=== PATIENT | female | born 1945 | race Caucasian/White ===

== ENCOUNTER 2017-03-13 09:15 | Inpatient (IN) | payer OTHER ==
[2017-02-26 15:51] LABS: % IMMATURE GRANULYOCYTES 0.2 % (0.0-1.1); ABSOLUTE IMMATURE GRANULOCYTES 0.01 10^3/uL (0.00-0.10); ADD DIFF? NO; ADD MORPH? NO; ADD SCAN? NO; ATYPICAL LYMPHOCYTE FLAG 50 (0-99); FRAGMENT RBC FLAG 0 (0-99); HEMATOCRIT 41.3 % (38.0-47.0); HEMOGLOBIN 14.1 g/dL (12.6-16.3); LEFT SHIFT FLG 0 (0-99); LIPEMIA HEMOLYSIS FLAG 90 (0-99); MEAN CELL HEMOGLOBIN 34.4 pg (27.9-34.1); MEAN CELL HEMOGLOBIN CONCENTR. 34.1 g/dL (32.4-36.7); MEAN CELL VOLUME 100.7 fL (81.5-99.8); MEAN PLATELET VOLUME 10.7 fL (8.7-11.7); PLATELET CLUMPS FLAG 0 (0-99); PLATELET COUNT 161 10^3/uL (150-400); RED CELL DISTRIBUTION WIDTH 12.3 % (11.5-15.2)
[2017-02-26 16:11] LABS: ALANINE AMINOTRANSFERASE 34 IU/L (9-52); ALKALINE PHOSPHATASE 68 IU/L (38-126); ANION GAP 15 mEq/L (8-16); ASPARTATE AMINOTRANSFERASE 32 IU/L (14-46); BILIRUBIN,TOTAL 1.1 mg/dL (0.1-1.4); CALCIUM 9.8 mg/dL (8.5-10.4); CARBON DIOXIDE 28 mEq/l (22-31); CHLORIDE 105 mEq/L (97-110); CREATININE 0.7 mg/dL (0.6-1.0); GLOMERULAR FILTRATION RATE > 60; GLUCOSE 78 mg/dL (70-100); POTASSIUM 4.7 mEq/L (3.5-5.2); SODIUM 148 mEq/L (134-144); TOTAL PROTEIN 6.5 g/dL (6.3-8.2)
[2017-04-17] MEDS ORDERED: CHLORHEXIDINE GLUC HIBICLENS 118 ML BTL TP ONE (11:42)
[2017-04-17] MEDS ORDERED: BUPIVACAINE 0.25% 30 ML SDV ONE ×4 (11:42→14:19)
[2017-04-17] MEDS ORDERED: BACITRACIN 50,000 UNITS/10 ML SYR IRR ONE ×2 (11:43→14:17)
[2017-04-17] MEDS ORDERED: THROMBIN (BOVINE) 5,000 UNIT VIAL TP ONE ×2 (11:43→14:19)
[2017-04-17] MEDS ORDERED: BACITRACIN ZINC 14.2 GM OINTTUBE TP ONE (11:47)
[2017-04-17] MEDS ORDERED: POVIDONE-IODINE 30 GM OINTTUBE TP ONE (11:47)
[2017-04-17] MEDS ORDERED: ceFAZolin 2 GM/SWFI 2 GM/20 ML SYR IVP ONE (11:57)
[2017-04-17] MEDS ORDERED: LR 1,000 ML IV ONE (11:58)
--- NOTE | 2017-04-17 13:50 | PDANEPAE ---
ANE History of Present Illness C5-7 fusion ANE Past Medical History - Cardiovascular History Hx Hypertension: Yes Hx Arrhythmias: No Hx Chest Pain: No Hx Coronary Artery / Peripheral Vascular Disease: Yes Hx CHF / Valvular Disease: No Hx Palpitations: No Cardiovascular History Comment: cad- stent x1. 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 severe back pain - Endocrine History Hx Diabetes: No Endocrine History Comment: hypothyroidism - Renal History Hx Renal Disorders: No - Liver History Hx Hepatic Disorders: No - Neurological & Psychiatric Hx Hx Neurological and Psychiatric Disorders: No - Cancer History Hx Cancer: Yes Cancer History Comment: breast cancer with chemo and radiation. currently on oral chemo daily - Congenital Disorder History Hx Congenital Disorders: No - GI History Hx Gastrointestinal Disorders: Yes Gastrointestinal History Comment: reflux - Other Health History Other Health History: wears reading glasses - Chronic Pain History Chronic Pain: Yes (back) - Surgical History Prior Surgeries: Right CHELO. bilateral cataracts. Right breast lumpectomy. cardiac stent x1 2012. tonsillectomy. hand surgeries ANE Review of Systems Review of Systems: - Exercise capacity METS (RN): 4 METS ANE Patient History - Allergies Allergies/Adverse Reactions: amlodipine [From Norvasc] Allergy (Verified 04/15/17 16:49) SWELLING NSAIDS (Non-Steroidal Anti-Inflamma Allergy (Verified 04/15/17 16:49) SWELLING/KIDNEY PROBLEMS - Home Medications Home Medications: Aspirin [Aspirin 81mg (*)] 81 mg PO DAILY 02/19/17 [Last Taken Unknown] Atenolol [Tenormin 50 mg (*)] 50 mg PO DAILY 02/19/17 [Last Taken Unknown] Atorvastatin Calcium [Lipitor 40 mg (*)] 40 mg PO HS 02/19/17 [Last Taken Unknown] Azelastine [Astelin Nasal Kelly (RX)] 1 sprays EACHNARE BID PRN 02/19/17 [Last Taken 04/16/17] Cetirizine [ZyrTEC 10 mg (*)] 10 mg PO DAILY 02/19/17 [Last Taken 04/16/17] Cholecalciferol Vit D3 [Vitamin D3 (*)] 5,000 units PO DAILY 02/19/17 [Last Taken Unknown] Cyanocobalamin [Vitamin B12 (*)] 1,000 mcg PO DAILY 02/19/17 [Last Taken ] Denosumab [Prolia] 60 mg SQ Q183D 02/19/17 [Last Taken 04/16/17] Furosemide [Lasix 40 MG (*)] 40 mg PO DAILY PRN 02/19/17 [Last Taken 04/15/17] Gabapentin [Neurontin 300 MG (*)] 300 mg PO TID 02/19/17 [Last Taken 04/17/17] Herbals/Supplements -Info Only 1 ea PO DAILY 02/19/17 [Last Taken 04/16/17] Letrozole [Femara 2.5 mg (*)] 2.5 mg PO DAILY 02/19/17 [Last Taken 04/17/17] Levothyroxine [Synthroid 75 mcg (*)] 75 mcg PO DAILY06 02/19/17 [Last Taken ] [place]-3 Fatty Acids [Fish Oil 1000 mg (*)] 1,000 mg PO HS 02/19/17 [Last Taken 04/16/17] [place]-3 Fatty Acids [Fish Oil 1000 mg (*)] 2,000 mg PO DAILY 02/19/17 [Last Taken 04/16/17] Omeprazole [Prilosec 20 mg] 20 mg PO BID 02/19/17 [Last Taken 04/16/17] Potassium Cl [Klor-Con 20 meq (*)] 20 mg PO DAILY PRN 02/19/17 [Last Taken 04/15] oxyCODONE/APAP 5/325 [Percocet 5/325 (*)] 1 tab PO Q6HRS PRN 02/19/17 [Last Taken 04/17/17] - NPO status NPO Since - Liquids (Date): 04/16/17 NPO Since - Liquids (Time): 22:00 NPO Since - Solids (Date): 04/16/17 NPO Since - Solids (Time): 22:00 - Smoking Hx Smoking Status: Current some day smoker - Family Anes Hx Family Hx Anesthesia Complications: none ANE Labs/Vital Signs - Labs Result Diagrams: 02/26/17 15:36 02/26/17 15:36 - Vital Signs Blood Pressure: 119/54 Heart Rate: 68 Respiratory Rate: 17 O2 Sat (%): 91 Height: 153.67 cm Weight: 49.895 kg ANE Physical Exam - Airway Neck exam: decreased ROM Mallampati Score: Class 2 Mouth exam: poor dentition - Pulmonary Pulmonary: clear to auscultation - Cardiovascular Cardiovascular: regular rate and rhythym - ASA Status ASA Status: III ANE Anesthesia Plan Anesthesia Plan: general endotracheal anesthesia Total IV Anesthesia: Yes
--- NOTE | 2017-04-17 13:56 | PDGENHP ---
History & Physical Chief Complaint: hand paresthesias History of Present Illness: 72 yo F with progressive hand weakness and paresthesias related to her cervical stenosis. Pertinent Past, Social, Family History: see H&P Relevant Physical Exam: 09/06. + light touch Cardiorespiratory Assessment: RRR. CTA bilat
[2017-04-17] MEDS ORDERED: PROPOFOL/EMULSION 500 MG/50 ML BOTTLE IV ONE ×5 (14:09→17:31)
[2017-04-17] MEDS ORDERED: REMIFENTANIL HCL 1 MG VIAL ONE ×3 (14:10)
[2017-04-17] MEDS ORDERED: SUCCINYLCHOLINE CHLORIDE 200 MG/10 ML SYR IVP ONE (14:11)
[2017-04-17] MEDS ORDERED: LIDOCAINE 2% 5 ML SDV ONE (14:13)
[2017-04-17] MEDS ORDERED: AZELASTINE NASAL MDI EACHNARE PRN (14:26)
[2017-04-17] MEDS ORDERED: FUROSEMIDE 40 MG TAB PO PRN (14:26)
[2017-04-17] MEDS ORDERED: HYDROmorphONE/DILAUDID 2 MG/ML INJ ONE (15:38)
[2017-04-17] MEDS ORDERED: ONDANSETRON 4 MG/2 ML VIAL ONE (15:40)
[2017-04-17] MEDS ORDERED: METOCLOPRAMIDE 10 MG/2 ML VIAL ONE (15:40)
[2017-04-17] MEDS ORDERED: DEXAMETHASONE 4 MG/ML VIAL ONE ×2 (15:40)
[2017-04-17] MEDS ORDERED: SURGIFLO MATRIX KIT WITH THROMBIN 8ml TP ONE (16:30)
[2017-04-17] MEDS ORDERED: HYDROCODONE/APAP 5/325 TAB PO PRN (18:54)
[2017-04-17] MEDS ORDERED: MAGNESIUM HYDROXIDE 30 ML UDCUP PO PRN (18:54)
[2017-04-17] MEDS ORDERED: LACTULOSE 20 GM/30 ML UDCUP PO PRN (18:54)
[2017-04-17] MEDS ORDERED: diphenhydrAMINE 25 MG CAP PO PRN (18:54)
[2017-04-17] MEDS ORDERED: ONDANSETRON DISINTEGRATING 4 MG TAB PO PRN (18:54)
[2017-04-17] MEDS ORDERED: BISACODYL 10 MG SUPP PR PRN (18:54)
[2017-04-17] MEDS ORDERED: morphINE PCA 30 MG/30 ML PCA IV PRN (18:54)
[2017-04-17] MEDS ORDERED: ONDANSETRON 4 MG/2 ML VIAL IVP PRN ×2 (18:54→19:28)
[2017-04-17] MEDS ORDERED: NALOXONE HCL 0.4 MG/ML INJ IVP PRN ×2 (18:54→19:28)
[2017-04-17] MEDS ORDERED: NS W/ 20 KCl/L 1,000 ML IV SCH (19:00)
--- NOTE | 2017-04-17 19:00 | SOAPPROG ---
SOAP Progress Note Assessment/Plan: Assessment: 72 yo F sp C5-7 ACDF and C4-7 posterior decompression and fusion Plan: neuro: stable hard collar lovenox starts POD #3 ZACK x 2 please call with neuro changes 04/17/17 18:57 Subjective: + neck pain, no arm pain Objective: Vital Signs Temp Pulse Resp BP Pulse Ox 37.1 C 68 17 119/54 L 91 L 04/17/17 12:00 04/17/17 13:50 04/17/17 13:50 04/17/17 13:50 04/17/17 13:50 Laboratory Results 02/26/17 15:36 02/26/17 15:36 somnolent PERRL, EOMI TOBY x 4 + light touch C/D/I x 2 ICD10 Worksheet Patient Problems: Problems Problem Status Onset Fusion of spine of cervical region Acute - ICD10 Problem Qualifiers (1) Fusion of spine of cervical region
--- NOTE | 2017-04-17 19:05 | POSTANESTH ---
Post Anesthetic Evaluation Cardiovascular Status: Normal, Stable Respiratory Status: Normal, Stable Level of Consciousness/Mental Status: Can Participate in Eval, Mildly Sleepy, Arousable Pain Control: Adequate, Prn Tx Ordered Nausea/Vomiting Control: Adequate, Prn Tx Ordered Complications Possibly Related to Anesthesia: None Noted
[2017-04-17] MEDS ORDERED: fentaNYL 100 MCG/2 ML INJ ONE ×2 (19:25→19:40)
[2017-04-17] MEDS: fentaNYL 100 MCG/2 ML INJ IVP PRN ×3 (19:27→19:58)
[2017-04-17] MEDS ORDERED: ALBUTEROL 3 ML DEYVIAL IH PRN (19:28)
[2017-04-17] MEDS ORDERED: HYDROmorphONE/DILAUDID 1 MG/ML INJ ONE (19:40)
[2017-04-17] MEDS: HYDROmorphONE/DILAUDID 1 MG/ML INJ IVP PRN ×2 (19:42→19:58)
[2017-04-17] MEDS: GABAPENTIN 300 MG CAP PO SCH ×2 (21:37→21:45)
[2017-04-17] MEDS: FAMOTIDINE 20 MG TAB PO SCH (21:37)
[2017-04-17] MEDS: PANTOPRAZOLE SODIUM 40 MG TAB PO SCH (21:38)
[2017-04-17] MEDS: morphINE SR 15 MG TAB PO SCH (21:38)
[2017-04-17] MEDS: ATORVASTATIN CALCIUM 40 MG TAB PO SCH (21:39)
[2017-04-17] MEDS: SENNOSIDES/DOCUSATE SODIUM TAB PO SCH (21:40)
[2017-04-17] MEDS: POLYETHYLENE GLYCOL 3350 17 GM PKT PO SCH (21:43)
[2017-04-17] MEDS: OXYCODONE/APAP 5/325 TAB PO PRN (23:21)
[2017-04-17] MEDS: oxyCODONE IR 5 MG TAB PO PRN (23:22)
[2017-04-17] MEDS: ceFAZolin 2 GM/DEXTROSE 100 ML IV SCH (23:22)
[2017-04-18] MEDS: GABAPENTIN 300 MG CAP PO SCH ×4 (00:03→21:11)
--- NOTE | 2017-04-18 03:39 | GOP ---
[f rep st] OPERATIVE REPORT DATE OF OPERATION: 04/17/2017 SURGEON: Link Daniel MD SOLAR ELECTRIC INSTALLER: George Thornton PA-C ANESTHESIA: General endotracheal. 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 Exploration of spinal fusion at C4-5 with C5-6 and C6-7 anterior cervical diskectomy and arthrode sis with two 11 mm structural PEEK interbody spacers and local autograft. 2. Partial C6 vertebral corpectomy. 3. Placement of a C5-C7 anterior cervical plate with self-drilling screws. 4. Use of intraoperative microscopy and fluoroscopy. FINDINGS: ESTIMATED BLOOD LOSS: 50 cc INDICATIONS: The patient is a 72-year-old woman with multilevel severe degenerative joint disease an d disk herniations with severe spinal stenosis and progressive cervical spondylitic myelopathy. She also has Klippel-Feil syndrome at the C4-5 level. She presents now for multilevel anterior and poste rior surgical decompression and stabilization. DESCRIPTION OF PROCEDURE: After informed consent was obtained, the patient was taken to the operatin g room and placed in the supine position with the head in the Halter retractor system. After baselin e neuro monitoring, potentials were obtained in the neutral position. They were reobtained after ariela cement of the Halter retractor system. The anterior cervical region was then prepped and draped in a sterile fashion. After fluoroscopic localization of the correct level, the subcutaneous and intramu scular tissues were infiltrated with local anesthesia. A horizontal incision was then created at the level of the C6 vertebral body. This was carried through the platysmal layer using the monopolar el ectrocautery and carried in the avascular plane between the sternocleidomastoid and carotid sheath la terally and the strap muscles, trachea, and esophagus medially down to the prevertebral fascia, which was carefully incised with Metzenbaum scissors. The anatomy was extremely distorted. The C4-5 leve l was explored and inspected and noted to be a solid natural Klippel-Feil fusion. The C5-6 and C6-7 levels were carefully dissected out. This was much more time consuming than normal due to the extrem conard large uncovertebral joints and distorted anatomy. Eventually, I did get this all dissected out a nd the [place] distraction pins were inserted. Serial distraction was created across the interspace, first at C5-6 and then at C6-7. During which time complete diskectomies were performed with preparat ion of the endplates and removal of posterior longitudinal ligament. Bilateral foraminotomies were p erformed. Again, the degenerative arthritis was so severe along with the posteriorly protruding oste ophytes and an extensive amount of bone needed to be drilled away. Because the disk above and below the C6 vertebral body was being decompressed, there was an extensive amount of bone removal at C6, gr eater than 50%, for a partial C6 vertebral corpectomy. Following adequate decompression, the wound w as copiously irrigated with antibiotic irrigation and meticulous hemostasis was achieved as best I co uld. The interspaces were then packed with 11 mm structural PEEK interbody spacers with local autogr aft in the center for the osteophytectomy and partial corpectomy defect. This was performed under fl uoroscopic image guidance. The distraction was then removed and an appropriately sized 47 mm L&K Lv tleLoc-P anterior cervical plate was then placed and secured from C5 through C7 with self-drilling sc rews. Following re-verification of good position of the plate, screws, and interbody spacers using b iplanar fluoroscopy, the locking mechanisms were engaged. A drain was placed and the subcutaneous sp xavier and intramuscular tissues were re-infiltrated with local anesthesia after gently placing the resi dual local autograft in the anterior hole of the plate. After placing the drain and local anesthesia , the wound was closed in a layered fashion using interrupted Vicryl sutures followed by Steri-Strips on the skin. COMPLICATIONS: None. DISPOSITION: The patient remained intubated and was repositioned prone for the posterior cervical po rtion of the operation. /[id number]/MODL
--- NOTE | 2017-04-18 03:44 | GOP ---
[f rep st] OPERATIVE REPORT DATE OF OPERATION: 04/17/2017 SURGEON: Link Daniel MD CORPORATE INVESTIGATOR: George Thornton PA-C ANESTHESIA: General endotracheal. 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 PROCEDURE PERFORMED: 1. C4-C7 posterior segmental (lateral mass screw) fixation and posterolateral fusion with local auto graft. 2. C4-C7 laminectomies for decompression of the spinal cord. 3. Use of intraoperative microscopy and fluoroscopy. FINDINGS: ESTIMATED BLOOD LOSS: 75 cc. INDICATIONS: The patient is a 72-year-old woman with multilevel severe degenerative joint disease an d disk herniations with severe spinal stenosis and progressive cervical spondylitic myelopathy. She also has Klippel-Feil syndrome at the C4-5 level. She presents now for multilevel anterior and poste rior surgical decompression and stabilization. DESCRIPTION OF PROCEDURE: After the anterior portion of the procedure was completed, the patient was repositioned prone with the head in a Graves head cager. The posterior cervical region was prepp ed and draped in the sterile fashion. After fluoroscopic localization of correct levels, the subcuta neous and intramuscular tissues were infiltrated with local anesthesia. A midline linear incision wa s then created from approximately C4 through C7. This was carried down to the fascial layer, which w as incised using monopolar electrocautery and carried in a subperiosteal plane along the spinous proc esses and lamina bilaterally. Intraoperative fluoroscopy was again utilized to verify the correct le vels. Following this, the dissection was carried out over the facet joints. The system w ith a massive fluted bur was utilized to carefully drill gutters between the lamina and the lateral m asses. The lamina were all removed and morselized for local autograft after carefully cleaning off a ll soft tissue. Meticulous hemostasis was achieved and, following this, lateral mass screw fixation was placed at C4, C5, C6, and C7 bilaterally. Each individual screw was tested neurophysiologically with monopolar electrostimulation and interpretation of the potentials by the surgeon. Good position of the screws was also verified using biplanar fluoroscopy. The rods were then placed and secured u nder maximal lordosis. The remaining facet joints and lateral masses were then extensively decortica fausto and the residual local autograft was placed out laterally for a posterolateral fusion from C4 thr ough C7. The subcutaneous and intramuscular tissues were then re-infiltrated with local anesthesia a nd the wound was closed in a layered fashion using interrupted Vicryl sutures followed by Steri-Strip s on the skin after placement of the drain. COMPLICATIONS: None. DISPOSITION: The patient is currently in the process of being repositioned for extubation. /[id number]/MODL
[2017-04-18 04:52] LABS: % IMMATURE GRANULYOCYTES 0.4 % (0.0-1.1); ABSOLUTE IMMATURE GRANULOCYTES 0.03 10^3/uL (0.00-0.10); ADD DIFF? NO; ADD MORPH? NO; ADD SCAN? NO; ATYPICAL LYMPHOCYTE FLAG 0 (0-99); FRAGMENT RBC FLAG 0 (0-99); HEMATOCRIT 33.5 % (38.0-47.0); HEMOGLOBIN 11.4 g/dL (12.6-16.3); LEFT SHIFT FLG 0 (0-99); LIPEMIA HEMOLYSIS FLAG 90 (0-99); MEAN CELL HEMOGLOBIN 32.9 pg (27.9-34.1); MEAN CELL VOLUME 96.5 fL (81.5-99.8); PLATELET CLUMPS FLAG 10 (0-99); PLATELET COUNT 139 10^3/uL (150-400); RED BLOOD CELL COUNT 3.47 10^6/uL (4.18-5.33); RED CELL DISTRIBUTION WIDTH 12.2 % (11.5-15.2)
[2017-04-18 05:00] LABS: ANION GAP 9 mEq/L (8-16); CARBON DIOXIDE 25 mEq/l (22-31); CHLORIDE 110 mEq/L (97-110); CREATININE 0.6 mg/dL (0.6-1.0); GLOMERULAR FILTRATION RATE > 60; GLUCOSE 150 mg/dL (70-100); POTASSIUM 4.5 mEq/L (3.5-5.2); SODIUM 144 mEq/L (134-144)
[2017-04-18] MEDS: ceFAZolin 2 GM/DEXTROSE 100 ML IV SCH (06:02)
[2017-04-18] MEDS: LEVOTHYROXINE 75 MCG TAB PO SCH (06:02)
[2017-04-18] MEDS: oxyCODONE IR 5 MG TAB PO PRN ×2 (06:02→19:37)
--- NOTE | 2017-04-18 07:54 | SOAPPROG ---
SOAP Progress Note Assessment/Plan: Assessment: 72 yo F pod #1 C5-7 ACDF and C4-7 posterior decompression and fusion Plan: neuro: stable and doing well overall :) hard collar at all times for 4 weeks x-rays today scd/fausto/ for dvt prophylaxis, lovenox starts POD #3 ZACK x 2 please call with neuro changes 04/17/17 18:57 04/18/17 07:53 Subjective: + neck pain, no arm pain, no weakness. Objective: Vital Signs Temp Pulse Resp BP Pulse Ox 36.6 C 71 16 162/77 H 95 04/18/17 07:25 04/18/17 07:25 04/18/17 07:25 04/18/17 07:25 04/18/17 07:25 Laboratory Results 04/18/17 04:11 04/18/17 04:11 04/17/17 04/18/17 04/19/17 05:59 05:59 05:59 Intake Total 2410 245 Output Total 920 Balance 1490 245 AAOX4, +FC PERRL, EOMI, no facial droop 5/5 + light touch C/D/I x 2 ICD10 Worksheet Patient Problems: Problems Problem Status Onset Fusion of spine of cervical region Acute - ICD10 Problem Qualifiers (1) Fusion of spine of cervical region
[2017-04-18] MEDS: morphINE SR 15 MG TAB PO SCH ×2 (08:05→22:44)
[2017-04-18] MEDS: PANTOPRAZOLE SODIUM 40 MG TAB PO SCH ×2 (08:05→19:37)
[2017-04-18] MEDS: FAMOTIDINE 20 MG TAB PO SCH ×2 (08:06→19:36)
[2017-04-18] MEDS: ATENOLOL 50 MG TAB PO SCH (08:06)
[2017-04-18] MEDS: CETIRIZINE 10 MG TAB PO SCH (08:06)
[2017-04-18] MEDS: CYANO/VITAMIN B12 1000 MCG TAB PO SCH (08:06)
[2017-04-18] MEDS: CHOLECALCIFEROL VIT D3 1,000 UNITS TAB PO SCH (08:06)
[2017-04-18] MEDS: SENNOSIDES/DOCUSATE SODIUM TAB PO SCH ×2 (08:07→22:12)
[2017-04-18] MEDS: POLYETHYLENE GLYCOL 3350 17 GM PKT PO SCH ×3 (08:08→22:11)
[2017-04-18] MEDS: LETROZOLE 2.5 MG TAB PO SCH (11:01)
--- NOTE | 2017-04-18 15:34 | ASMTCMCOM ---
CM Note CM Note Notes: Pt s/p C5-7 cervical fusion. PT/OT cleared. Anticipate pt will d/c home with no CM needs - will continue to follow for any change in needs. Date Signed: 04/18/2017 03:34 PM Electronically Signed By:BRET Reinoso
[2017-04-18] MEDS: ATORVASTATIN CALCIUM 40 MG TAB PO SCH (19:37)
[2017-04-18] MEDS: OXYCODONE/APAP 5/325 TAB PO PRN (19:37)
[2017-04-19] MEDS: oxyCODONE IR 5 MG TAB PO PRN ×4 (00:18→21:54)
[2017-04-19] MEDS: LEVOTHYROXINE 75 MCG TAB PO SCH (05:46)
[2017-04-19] MEDS: METHOCARBAMOL 750 MG TAB PO PRN ×2 (09:59→17:03)
[2017-04-19] MEDS: CETIRIZINE 10 MG TAB PO SCH (10:57)
[2017-04-19] MEDS: GABAPENTIN 300 MG CAP PO SCH ×3 (10:58→21:39)
[2017-04-19] MEDS: CYANO/VITAMIN B12 1000 MCG TAB PO SCH (10:58)
[2017-04-19] MEDS: CHOLECALCIFEROL VIT D3 1,000 UNITS TAB PO SCH (10:58)
[2017-04-19] MEDS: PANTOPRAZOLE SODIUM 40 MG TAB PO SCH ×2 (10:59→20:00)
[2017-04-19] MEDS: SENNOSIDES/DOCUSATE SODIUM TAB PO SCH ×2 (10:59→21:39)
[2017-04-19] MEDS: POLYETHYLENE GLYCOL 3350 17 GM PKT PO SCH ×3 (10:59→23:18)
[2017-04-19] MEDS: morphINE SR 15 MG TAB PO SCH (10:59)
[2017-04-19] MEDS: ATENOLOL 50 MG TAB PO SCH (10:59)
[2017-04-19] MEDS: FAMOTIDINE 20 MG TAB PO SCH ×2 (11:00→20:00)
[2017-04-19] MEDS: LETROZOLE 2.5 MG TAB PO SCH (11:00)
--- NOTE | 2017-04-19 11:24 | NEUSURGPN ---
Date of Surgery: 04/17/17 Post Op Day: 2 Assessment/Plan: Assessment: 72 yo F pod #2 C5-7 ACDF and C4-7 posterior decompression and fusion Plan: -Patient with acute right deltoid weakness, full strength in all other muscle groups. Likely a 5th nerve palsy given unilateral symptoms without other muscle group involvement. No need to image at this time. Discussed with Dr Telles and explained to the patient that this can resolve over a long period of time. -PT/OT/ST -hard collar at all times for 4 weeks -x-rays demonstrate stable hardware placement without evidence of complication -pain management-dc percocet, encouraged patient to try Robaxin for shoulder pain, will use Oxycodone and Tylenol for pain control -scd/fausto/ for dvt prophylaxis, lovenox starts POD #3 -Will dc anterior ZACK today, leave posterior ZACK for now -Discussed patient with Dr Telles -Please call neurosurgery with any questions/concerns Subjective: patient with some shoulder tenderness Objective: AxO x3 PERRLA EOMI No droop 5/5 BLE 5/5 BUE except right deltoid 2/5 Sensation intact to light touch BLE Dressings x2 CDI Anterior and posterior ZACK in place Neuro Check Frequency: per routine Urinary Catheter in Place: No Catheter Insertion Date: 04/17/17 - Physician Discussed Patient with : [facility] Neurosurgery Physical Exam - Vitals, I&O, Labs I and O 04/18/17 04/19/17 04/20/17 05:59 05:59 05:59 Intake Total 2410 1145 Output Total 920 105 Balance 1490 1040 Weight 49.895 kg Intake: Oral (ml) 10 900 IV Intake (ml) 2400 IV Infused (ml) 245 NS W/ 20 KCl/L 1,000 ml @ 245 75 mls/hr IV CONT CORINNE Rx #:[id number] Output: Urine (ml) 500 Catheter 500 Estimated Blood Loss (ml) 50 Emesis (ml) 0 ZACK Drain Output (ml) 370 105 Anterior Neck Cameron 130 30 [place] Posterior Neck Cameron 240 75 [place] Other: Number of Voids Toilet 2 1 Number of Stools Toilet 2 Vital Signs Temp Pulse Resp BP Pulse Ox 37.2 C 83 14 130/88 H 95 04/19/17 07:22 04/19/17 10:59 04/19/17 07:22 04/19/17 10:59 04/19/17 07:22 Laboratory Results 04/18/17 04:11 04/18/17 04:11 ICD10 Worksheet Patient Problems: Problems Problem Status Onset Fusion of spine of cervical region Acute
[2017-04-19 16:16] VITALS: RESP 16
[2017-04-19] MEDS: ACETAMINOPHEN 325 MG TAB PO PRN (17:03)
[2017-04-19] MEDS: ATORVASTATIN CALCIUM 40 MG TAB PO SCH (20:00)
[2017-04-20] MEDS: METHOCARBAMOL 750 MG TAB PO PRN ×3 (02:10→21:40)
[2017-04-20] MEDS: LEVOTHYROXINE 75 MCG TAB PO SCH (05:35)
[2017-04-20] MEDS: oxyCODONE IR 5 MG TAB PO PRN (05:53)
--- NOTE | 2017-04-20 07:28 | NEUSURGPN ---
Date of Surgery: 04/17/17 Post Op Day: 3 Assessment/Plan: Assessment: 72 yo F pod #3 C5-7 ACDF and C4-7 posterior decompression and fusion Plan: -Patient with acute right deltoid weakness, full strength in all other muscle groups. Likely a 5th nerve palsy given unilateral symptoms without other muscle group involvement. No need to image at this time. Discussed with Dr Telles and explained to the patient that this can resolve over a long period of time. - continue with PT/OT/ST -hard collar at all times for 4 weeks -x-rays demonstrate stable hardware placement without evidence of complication -pain management-will add low dose Valium for muscle spasms -scd/fausto/ for dvt prophylaxis, lovenox starts POD #3 -leave ZACK in for now -case management to eval for dispo options per therapies recommendations -Discussed patient with Dr Telles -Please call neurosurgery with any questions/concerns Subjective: continued shoulder/scapular pain Objective: AxO x3 PERRLA EOMI No droop 5/5 BLE 5/5 BUE except right deltoid 2/5 Sensation intact to light touch BLE Dressings x2 CDI Neuro Check Frequency: per routine Urinary Catheter in Place: No Catheter Insertion Date: 04/17/17 - Physician Discussed Patient with : [facility] Neurosurgery Physical Exam - Vitals, I&O, Labs I and O 04/19/17 04/20/17 04/21/17 05:59 05:59 05:59 Intake Total 1145 800 Output Total 105 45 Balance 1040 755 Intake: Oral (ml) 900 800 IV Infused (ml) 245 NS W/ 20 KCl/L 1,000 ml @ 245 75 mls/hr IV CONT CORINNE Rx #:[id number] Output: ZACK Drain Output (ml) 105 45 Anterior Neck [place] 30 35 [place] Posterior Neck [place] 75 10 [place] Other: Intake Quantity Yes Sufficient Number of Voids Toilet 2 2 Number of Stools Toilet 2 Vital Signs Temp Pulse Resp BP Pulse Ox 37.1 C 73 16 132/68 H 93 04/19/17 22:58 04/19/17 22:58 04/19/17 22:58 04/19/17 22:58 04/19/17 22:58 Laboratory Results 04/18/17 04:11 04/18/17 04:11 ICD10 Worksheet Patient Problems: Problems Problem Status Onset Fusion of spine of cervical region Acute
[2017-04-20] MEDS ORDERED: DIAZEPAM 2 MG TAB PO PRN (07:32)
[2017-04-20] MEDS: ATENOLOL 50 MG TAB PO SCH (10:00)
[2017-04-20] MEDS: CYANO/VITAMIN B12 1000 MCG TAB PO SCH (10:01)
[2017-04-20] MEDS: CETIRIZINE 10 MG TAB PO SCH (10:01)
[2017-04-20] MEDS: CHOLECALCIFEROL VIT D3 1,000 UNITS TAB PO SCH (10:01)
[2017-04-20] MEDS: PANTOPRAZOLE SODIUM 40 MG TAB PO SCH ×2 (10:02→21:15)
[2017-04-20] MEDS: ACETAMINOPHEN 325 MG TAB PO PRN (10:02)
[2017-04-20] MEDS: GABAPENTIN 300 MG CAP PO SCH ×3 (10:02→21:15)
[2017-04-20] MEDS: LETROZOLE 2.5 MG TAB PO SCH (10:02)
[2017-04-20] MEDS: ENOXAPARIN 40 MG/0.4 ML SYR SC SCH (10:13)
[2017-04-20] MEDS: SENNOSIDES/DOCUSATE SODIUM TAB PO SCH ×2 (10:16→21:16)
[2017-04-20] MEDS: POLYETHYLENE GLYCOL 3350 17 GM PKT PO SCH ×3 (10:16→21:14)
[2017-04-20] MEDS: FAMOTIDINE 20 MG TAB PO SCH ×2 (10:16→21:15)
--- NOTE | 2017-04-20 15:21 | ASMTCMCOM ---
CM Note CM Note Notes: CM spoke w/ [place] PT regarding d/c POC. CM met w/ pt for dispo planning. Pt is agreeable to having HC. Referral made to [facility]. CM confirmed address and phone number. CM to follow. Plan: HC; PT/OT Date Signed: 04/20/2017 03:21 PM Electronically Signed By:THU Ho
[2017-04-20] MEDS: ATORVASTATIN CALCIUM 40 MG TAB PO SCH (21:15)
[2017-04-21] MEDS: oxyCODONE IR 5 MG TAB PO PRN ×4 (04:10→21:54)
[2017-04-21] MEDS: LEVOTHYROXINE 75 MCG TAB PO SCH (06:01)
--- NOTE | 2017-04-21 08:11 | SOAPPROG ---
SOAP Progress Note Assessment/Plan: Assessment: 72 yo F pod #4 C5-7 ACDF and C4-7 posterior decompression and fusion Plan: neuro: stable and doing well overall hard collar at all times for 4 weeks worsening cough without fevers, ? bronchitis vs pneumonia, will check CXR and have Medicine consult continued weakness in right deltoid/triceps, will follow for now cervical x-rays look good. scd/fausto/lovenox for dvt prophylaxis JPs removed please call with neuro changes Patient seen by Dr Telles this am 04/17/17 18:57 04/18/17 07:53 04/21/17 08:09 04/21/17 08:11 Subjective: continued neck pain with weakness in right arm Objective: Vital Signs Temp Pulse Resp BP Pulse Ox 36.8 C 81 16 146/75 H 90 L 04/21/17 00:00 04/21/17 00:00 04/21/17 00:00 04/21/17 00:00 04/21/17 00:00 Laboratory Results 04/18/17 04:11 04/18/17 04:11 04/20/17 04/21/17 04/22/17 05:59 05:59 05:59 Intake Total 800 500 Output Total 45 20 Balance 755 480 AAOx4, +FC PERRL, EOMI, no facial droop 5/5 except right deltoid/triceps 4/5 + light touch C/D/I x 2 ICD10 Worksheet Patient Problems: Problems Problem Status Onset Fusion of spine of cervical region Acute - ICD10 Problem Qualifiers (1) Fusion of spine of cervical region
[2017-04-21] MEDS: METHOCARBAMOL 750 MG TAB PO PRN (08:17)
[2017-04-21] MEDS: GABAPENTIN 300 MG CAP PO SCH ×3 (08:19→21:43)
[2017-04-21] MEDS: CYANO/VITAMIN B12 1000 MCG TAB PO SCH (10:15)
[2017-04-21] MEDS: CHOLECALCIFEROL VIT D3 1,000 UNITS TAB PO SCH (10:15)
[2017-04-21] MEDS: PANTOPRAZOLE SODIUM 40 MG TAB PO SCH ×2 (10:15→21:44)
[2017-04-21] MEDS: ATENOLOL 50 MG TAB PO SCH (10:15)
[2017-04-21] MEDS: LETROZOLE 2.5 MG TAB PO SCH (10:15)
[2017-04-21] MEDS: SENNOSIDES/DOCUSATE SODIUM TAB PO SCH ×2 (10:16→21:43)
[2017-04-21] MEDS: FAMOTIDINE 20 MG TAB PO SCH ×2 (10:16→21:43)
[2017-04-21] MEDS: ENOXAPARIN 40 MG/0.4 ML SYR SC SCH (10:16)
[2017-04-21] MEDS: CETIRIZINE 10 MG TAB PO SCH (10:16)
[2017-04-21] MEDS: POLYETHYLENE GLYCOL 3350 17 GM PKT PO SCH ×2 (10:22→16:48)
[2017-04-21 11:17] LABS: % IMMATURE GRANULYOCYTES 0.3 % (0.0-1.1); ABSOLUTE IMMATURE GRANULOCYTES 0.02 10^3/uL (0.00-0.10); ADD DIFF? NO; ADD MORPH? NO; ADD SCAN? NO; ATYPICAL LYMPHOCYTE FLAG 0 (0-99); FRAGMENT RBC FLAG 0 (0-99); LEFT SHIFT FLG 0 (0-99); LIPEMIA HEMOLYSIS FLAG 90 (0-99); MEAN CELL HEMOGLOBIN 33.5 pg (27.9-34.1); MEAN CELL HEMOGLOBIN CONCENTR. 34.4 g/dL (32.4-36.7); MEAN CELL VOLUME 97.6 fL (81.5-99.8); MEAN PLATELET VOLUME 10.3 fL (8.7-11.7); PLATELET CLUMPS FLAG 0 (0-99); PLATELET COUNT 164 10^3/uL (150-400); RED BLOOD CELL COUNT 3.28 10^6/uL (4.18-5.33); RED CELL DISTRIBUTION WIDTH 11.8 % (11.5-15.2)
[2017-04-21 12:07] LABS: ANION GAP 11 mEq/L (8-16); CALCIUM 8.6 mg/dL (8.5-10.4); CARBON DIOXIDE 25 mEq/l (22-31); CHLORIDE 107 mEq/L (97-110); CREATININE 0.6 mg/dL (0.6-1.0); GLOMERULAR FILTRATION RATE > 60; GLUCOSE 166 mg/dL (70-100); SODIUM 143 mEq/L (134-144)
--- NOTE | 2017-04-21 18:42 | PDHOSCONS ---
Hospitalist Consult Hospitalist Consult: CC: Asked by Neurosurgery team to assess this patient because of cough in the postoperative setting after cervical spine surgery HISTORY: This patient came to the hospital for elective cervical spine surgery after previous spine surgery. She underwent laminectomy fusion spacer placement diskectomy and placement of a new plate. Overall her surgery was uncomplicated her clinical course afterward has been relatively smooth. However today she complained of significant cough without chest discomfort or shortness of breath and I am asked to see the patient for assessment of this cough. The patient tells me that she had no cough or respiratory or throat symptoms prior to surgery. Since surgery she notices feeling that her throat feels somewhat thickened, her hoarse voice is more prominent today, and that it feels slightly different to inspire than to in terms of airflow but it does not really sound like there is a true obstructive type symptom. She has not noticed any stridor. She does not have any chest discomfort does not feel really short of breath, and does not have any pain or swelling in her legs. There are no fever symptoms. Notably the patient has never been diagnosed with any pulmonary or respiratory illness or recall any respiratory symptoms during her life. She did however smoke about average 8 cigarettes per day from age 18 until 2 months ago when she quit. There is no family history of lung disease. ROS: A comprehensive 10 system review revealed expected postsurgical discomfort , otherwise no other significant findings PAST MEDICAL HISTORY: Cervical spine disease Cigarette smoking quit 2 months ago Hypertension Hyperlipidemia Hypothyroidism Seasonal allergies Osteoporosis new FAMILY MEDICAL HISTORY: Absence of any respiratory or pulmonary or cardiac issues in the family SOCIAL HISTORY: Lives locally here in [place] Again quit smoking 2 months ago after smoking just less than half pack a day since age 18, no use of significant alcohol no street drugs MEDICATIONS: The patients list has been reconciled by our clinical pharmacist in the EMR and I have reviewed the list PHYSICAL EXAMINATION: Vital Signs: No fever, respiratory rate 16 to 18, stable blood pressure and pulse Examination: General: alert, oriented, good mentation, relaxed; she is sitting up in her bed with a rigid cervical collar appropriately fitted, has an obvious hoarse voice with mild hypophonia and endorses that this is not her usual voice; I do not hear any stridor and her respirations did not look at all labored or uncomfortable She coughed once during my examination with her and there was a slight rattle to that cough but was nonproductive and it was a brief cough Skin: warm, dry, good color, no rash HEENT: normal Neck: no mass or jvd exam limited by her collar Resps: relaxed Lungs: Breath sounds are slightly diminished, and on the 1st couple of deep breaths listening posteriorly I heard rhonchi but these did clear completely with repeated deep breaths, no other abnormal breath sounds her Heart: regular, no murmur Abdomen: soft, nondistended, nontender, +BS, no mass Lower Extremities: no edema, warm No Bleeding or bruising Neurologic: normal speech/language, 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, no focal weakness IV site: looks normal LABORATORY DATA: Expected postoperative anemia otherwise normal CBC, on chemistries sugar slightly high otherwise normal RADIOLOGY STUDIES: Chest x-rays done today two views and I did review the images myself: My interpretation is mild hypoventilation and some mild atelectasis, equivocal changes to suggest possible bronchitis are not very convincing ASSESSMENT: # cough in the postoperative setting in a long-term smoker who quit 2 months ago -I think this is most likely related to some chronic bronchitic irritation from smoking, as well as acute irritation from endotracheal intubation and throat soft tissue swelling and irritation from her surgery just behind the larynx and trachea -I do not think she has a respiratory infection at this time but will recheck in the morning to be sore nothing is progressing -I would not recommend anything more at this time then aggressive attempts at getting her up and ambulating, bedside incentive spirometry, and if she has any worsening of the cough or production we could give her a flutter valve to use; I do not think bronchodilators are likely to add much now but if she develops any dyspnea that would be the most likely treatment to help # mild hyperglycemia may have some glucose intolerance or early type 2 diabetes -will check a hemoglobin A1c
[2017-04-21] MEDS: ATORVASTATIN CALCIUM 40 MG TAB PO SCH (21:44)
[2017-04-21 23:22] VITALS: TEMP 98.3
[2017-04-22] MEDS: POLYETHYLENE GLYCOL 3350 17 GM PKT PO SCH ×2 (00:40→10:11)
[2017-04-22] MEDS: LEVOTHYROXINE 75 MCG TAB PO SCH (05:31)
[2017-04-22 07:32] VITALS: BP 143/65; PULSE 79
[2017-04-22] MEDS: oxyCODONE IR 5 MG TAB PO PRN (07:42)
[2017-04-22] MEDS: METHOCARBAMOL 750 MG TAB PO PRN (07:42)
--- NOTE | 2017-04-22 07:51 | SOAPPROG ---
SOAP Progress Note Assessment/Plan: Assessment: 72 yo F pod #5 C5-7 ACDF and C4-7 posterior decompression and fusion Plan: neuro: stable and doing well overall hard collar at all times for 4 weeks worsening cough without fevers, likely chronic bronchitis, continue IS, appreciate IM input continued weakness in right deltoid/triceps, will follow for now cervical x-rays look good. scd/fausto/lovenox for dvt prophylaxis JPs removed 04/21 likely dc home today please call with neuro changes 04/17/17 18:57 04/18/17 07:53 04/21/17 08:09 04/21/17 08:11 04/22/17 07:49 Subjective: neck pain and cough improving, no arm pain, no weakness. Objective: Vital Signs Temp Pulse Resp BP Pulse Ox 36.8 C 79 16 143/65 H 92 04/21/17 23:21 04/22/17 07:30 04/22/17 07:30 04/22/17 07:30 04/22/17 07:30 Laboratory Results 04/21/17 11:05 04/21/17 11:05 04/21/17 04/22/17 04/23/17 05:59 05:59 05:59 Intake Total 500 900 Output Total 20 Balance 480 900 AAOx4, +FC PERRL, EOMI, no facial droop 5/5 except right deltoid/triceps + light touch C/D/I x 2 ICD10 Worksheet Patient Problems: Problems Problem Status Onset Fusion of spine of cervical region Acute - ICD10 Problem Qualifiers (1) Fusion of spine of cervical region
[2017-04-22] MEDS: LETROZOLE 2.5 MG TAB PO SCH (09:04)
[2017-04-22] MEDS: ATENOLOL 50 MG TAB PO SCH (09:05)
[2017-04-22] MEDS: CETIRIZINE 10 MG TAB PO SCH (09:05)
[2017-04-22] MEDS: GABAPENTIN 300 MG CAP PO SCH (09:05)
[2017-04-22] MEDS: FAMOTIDINE 20 MG TAB PO SCH (09:06)
[2017-04-22] MEDS: CHOLECALCIFEROL VIT D3 1,000 UNITS TAB PO SCH (09:06)
[2017-04-22] MEDS: SENNOSIDES/DOCUSATE SODIUM TAB PO SCH (09:06)
[2017-04-22] MEDS: PANTOPRAZOLE SODIUM 40 MG TAB PO SCH (09:06)
[2017-04-22] MEDS: CYANO/VITAMIN B12 1000 MCG TAB PO SCH (09:06)
[2017-04-22] MEDS: ENOXAPARIN 40 MG/0.4 ML SYR SC SCH (09:07)
--- NOTE | 2017-04-22 10:38 | PDHOMEO2F ---
Home Oxygen Face to Face Home Orders: I certify that a physician or a nurse practitioner or physician's bricklayer's assistant has had a sicz-bs-yftl encounter with this patient on the date of this order due to the diagnosis listed, which relates to the primary reason the patient requires home oxygen. Alternative treatments have been tried, or considered, and deemed ineffective. It is anticipated that supplemental oxygen will result in improvement with treatment. Home oxygen qualifying diagnosis: post op hypoxia/chronic bronchitis SpO2 on room air (%): 85% Frequency of home oxygen needed: continuous Home oxygen liters per minute: 2 lpm Home oxygen delivery device: nasal cannula Concentrator: Yes E-tanks for mobility and back up: Yes If ordering portable O2, is the patient mobile in the home?: Yes I certify that, based on these findings, the home oxygen is medically necessary for this patient for the following length of time. Length of time home oxygen needed: 1 month
--- NOTE | 2017-04-22 10:42 | PDIAF ---
- Diagnosis Code Status: Full Code - Medication Management Discharge Medications: Medications to Continue on Transfer Atenolol [Tenormin 50 mg (*)] 50 mg PO DAILY 02/19/17 [Last Taken Unknown] Atorvastatin Calcium [Lipitor 40 mg (*)] 40 mg PO HS 02/19/17 [Last Taken Unknown] Azelastine [Astelin] 1 sprays EACHNARE BID PRN 02/19/17 [Last Taken 04/16/17] Cetirizine [ZyrTEC 10 mg (*)] 10 mg PO DAILY 02/19/17 [Last Taken 04/16/17] Cholecalciferol Vit D3 [Vitamin D3 (*)] 5,000 units PO DAILY 02/19/17 [Last Taken Unknown] Cyanocobalamin [Vitamin B12 (*)] 1,000 mcg PO DAILY 02/19/17 [Last Taken ] Denosumab [Prolia] 60 mg SQ Q183D 02/19/17 [Last Taken 04/16/17] Furosemide [Lasix 40 MG (*)] 40 mg PO DAILY PRN 02/19/17 [Last Taken 04/15/17] Gabapentin [Neurontin 300 MG (*)] 300 mg PO TID 02/19/17 [Last Taken 04/17/17] Herbals/Supplements -Info Only 1 ea PO DAILY 02/19/17 [Last Taken 04/16/17] Letrozole [Femara 2.5 mg (*)] 2.5 mg PO DAILY 02/19/17 [Last Taken 04/17/17] Levothyroxine [Synthroid 75 mcg (*)] 75 mcg PO DAILY06 02/19/17 [Last Taken ] [place]-3 Fatty Acids [Fish Oil 1000 mg (*)] 1,000 mg PO HS 02/19/17 [Last Taken 04/16/17] [place]-3 Fatty Acids [Fish Oil 1000 mg (*)] 2,000 mg PO DAILY 02/19/17 [Last Taken 04/16/17] Omeprazole [Prilosec 20 mg] 20 mg PO BID 02/19/17 [Last Taken 04/16/17] Potassium Cl [Klor-Con 20 meq (*)] 20 mg PO DAILY PRN 02/19/17 [Last Taken 04/15] oxyCODONE/APAP 5/325 [Percocet 5/325 (*)] 1 tab PO Q6HRS PRN 02/19/17 [Last Taken 04/17/17] Gabapentin [Neurontin 300 MG (*)] 900 mg PO TID cap 04/22/17 [Last Taken Unknown] Methocarbamol [Robaxin 750 mg (*)] 750 mg PO QID PRN tab 04/22/17 [Last Taken Unknown] oxyCODONE IR [Oxycodone Ir (*)] 5 - 10 mg PO Q4HRS PRN tab 04/22/17 [Last Taken Unknown] Discharge Medications: Refer to the Discharge Home Medication list for PRN reason. PICC Care - Routine: N/A - Orders Services needed: Physical Therapy, Occupational Therapy Isolation Type: Chemotherapy Isolation Diet Recommendation: no restrictions on diet Diet Texture: Regular Texture Diet, Thin Liquids, Meds Whole in Puree Alvarez: Not applicable Equipment: hard collar at all times for 4 weeks - Follow Up Care Current Providers and Referrals: PINA DEE [Other]
[2017-04-22 10:51] LABS: HEMOGLOBIN A1C 5.4 % (4.0-6.0)
[2017-04-22 10:54] VITALS: O2SAT 85
--- NOTE | 2017-04-22 13:19 | HOSPPROG ---
Hospitalist Progress Note Assessment/Plan: DIAGNOSES: -cough in post operative setting, again I feel this is likely due to soft tissue neck edema/hematoma, as well as throat irritation from her endotracheal intubation for surgery, and possibly some mild bronchitic irritation related to smoking -at this time she remains very stable with no shortness of breath, no more than expected need for oxygen, nonproductive occasional cough that is improving and no fever PLANS: -increase activity and mobility as able -continue incentive spirometry -no other therapy indicated at this time SUBJECTIVE: Feels her cough is slightly better No shortness of breath No other chest symptoms no fever symptoms OBJECTIVE Vitals reviewed: Stable without fever 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
--- NOTE | 2017-04-22 14:48 | ASMTCMCOM ---
CM Note CM Note Notes: Pt medically stable for d/c with [facility] and 24 hour supervision from sister. [facility] orders sent in [employer]. Date Signed: 04/22/2017 02:47 PM Electronically Signed By:BRET Allen
--- NOTE | 2017-04-23 09:23 | ASDISCHSUM ---
Discharge Information Plan Status:Home with Home Health Medically Cleared to Leave: Discharge Date:04/22/2017 03:33 PM CM D/C Disposition:Home Health Service ADT D/C Disposition:Home, Routine, Self-Care Projected Discharge Date:04/21/2017 11:00 AM Transportation at D/C: Discharge Delay Reason: Follow-Up Date:04/21/2017 11:00 AM Discharge Slot: Final Diagnosis: Placement Information Referral Type:*Home Health Care Services Referral ID:[id number] Provider Name:[facility] Address 1:[address] Phone Number: Address [address]: [address] Fax Number: City:[place] Selection Factors: State:[place] Patient Contact Information Contact Name:JESUS Relationship:Other Address: Work Phone: City: [facility] Phone: [facility] Code: Email: Financial Information Financial Class: Primary Plan Desc:MEDICARE INPATIENT Primary Plan Number:[id number] Secondary Plan Desc:[employer] PPO POS HMO SIG ADM Secondary Plan Number:[id number] Assessment Information [facility] CM Progress Note CM Note CM Note Notes: Pt s/p C5-7 cervical fusion. PT/OT cleared. Anticipate pt will d/c home with no CM needs - will continue to follow for any change in needs. Date Signed: 04/18/2017 03:34 PM Electronically Signed By:BRET Reinoso [facility] CM Progress Note CM Note CM Note Notes: CM spoke w/ [place] [facility] regarding d/c POC. CM met w/ pt for dispo planning. Pt is agreeable to having HC. Referral made to [facility]. CM confirmed address and phone number. CM to follow. Plan: HC; PT/OT Date Signed: 04/20/2017 03:21 PM Electronically Signed By:THU Ho [facility] CM Progress Note CM Note CM Note Notes: Pt medically stable for d/c with [facility] and 24 hour supervision from sister. [facility] orders sent in Allscripts. Date Signed: 04/22/2017 02:47 PM Electronically Signed By:BRET Allen Intervention Information Intervention Type:*IM-Signed Date of Service:04/22/2017 02:34 PM Patient Type:Inpatient Staff Member:Ignacia Sandhu Hours: Discipline: Severity: Comment:
[2017-10-18] MEDS ORDERED: Denosumab [Prolia] 60 MG SQ SCH (09:00)
== END 2017-04-22 15:33 | disposition home or self-care (01) | DRG 455 ==
LOC: F3N 04-17 11:15
PROVIDERS: ADMIT Neurological Surgery; ATTEND Neurological Surgery
PROC: 0RG20A0 Fusion of 2 or more Cervical Vertebral Joints with Interbody Fusion Device, Anterior Approach, Anterior Column, Open Approach (ICD-10-PCS; principal; 2017-04-17 13:00)
PROC: 0RT30ZZ Resection of Cervical Vertebral Disc, Open Approach (ICD-10-PCS; principal; 2017-04-17 13:00)
PROC: 00NW0ZZ Release Cervical Spinal Cord, Open Approach (ICD-10-PCS; principal; 2017-04-17 13:00)
PROC: 0RG2071 Fusion of 2 or more Cervical Vertebral Joints with Autologous Tissue Substitute, Posterior Approach, Posterior Column, Open Approach (ICD-10-PCS; principal; 2017-04-17 13:00)
DX: M47.12 Other spondylosis with myelopathy, cervical region (principal); M50.20 Other cervical disc displacement, unspecified cervical region; M50.30 Other cervical disc degeneration, unspecified cervical region; M48.02 Spinal stenosis, cervical region; J42 Unspecified chronic bronchitis; Q76.1 Klippel-Feil syndrome; I10 Essential (primary) hypertension; E78.5 Hyperlipidemia, unspecified; E03.9 Hypothyroidism, unspecified; M81.0 Age-related osteoporosis without current pathological fracture; Z87.891 Personal history of nicotine dependence; Z96.641 Presence of right artificial hip joint; I25.10 Atherosclerotic heart disease of native coronary artery without angina pectoris; Z85.3 Personal history of malignant neoplasm of breast
CPT/HCPCS: 92526-GN; 92610-GN; 97116-GP; 97161-GP; 97164-GP; 97166-GO; 97168-GO; 97532-GO; 97535-GO; C1713; G8978-GP-CI; G8978-GP-CJ; G8979-GP-CI; G8980-GP-CI; G8987-GO-CI; G8987-GO-CJ; G8988-GO-CI; G8989-GO-CI; G8989-GO-CJ; G8996-GN-CI; G8997-GN-CI; J0171; J0330; J0690; J1100; J1170; J1650; J2405; J2704; J2765; J3010

== ENCOUNTER → 2017-10-14 | Outpatient (CLI) | payer OTHER | LOC: FIMAGING 13:41 | PROVIDERS: ATTEND Physician Assistant Surgical | DX: Z98.1 Arthrodesis status (principal); M51.36 Other intervertebral disc degeneration, lumbar region; M43.12 Spondylolisthesis, cervical region ==